=== PATIENT | male | born 1980 | race Caucasian/White ===

== ENCOUNTER 2017-08-15 20:18 | Emergency (ER) | payer OTHER ==
[~2017-08-15] VITALS: Ht 175.3 cm; Wt 99.7 kg
[2017-08-15 20:28] VITALS: Ht 175.3 cm; Wt 99.7 kg
[2017-08-15] MEDS ORDERED: HYDROCODONE/APAP (5/325) TAB PO ONE (21:30)
--- NOTE | 2017-08-15 21:50 | ERD ---
ER Documentation Chief Complaint Chief Complaint left lower toothache x 4 days, also c/o diarrhea/abd pain HPI 37-year-old male comes in with left-sided lower tooth pain that started about 4 days ago, is also had a left lower quadrant abdominal pain with diarrhea. Patient describes swelling to the gum, he tried poking it with a needle and which did not help. He has not had any difficulty swallowing, trismus, voice changes or drooling. He denies fevers or chills. He is also had on-and-off diarrhea, with left lower quadrant abdominal pain, possibly to 3 episodes each day that are nonbloody non-mucousy. ROS All systems reviewed and are negative except as per history of present illness. Medications Home Meds Active Scripts Ibuprofen* (Motrin*) 600 Mg Tab, 600 MG PO Q6, #30 TAB Prov:ADRIANA LUBIN PA-C 08/15/17 Penicillin V Potassium* (Penicillin V K*) 500 Mg Tab, 500 MG PO QID for 10 Days , TAB Prov:ADRIANA LUBIN PA-C 08/15/17 Allergies Allergies: Coded Allergies: No Known Drug Allergies (Verified Allergy, Unknown, 08/15/17) PMhx/Soc Medical and Surgical Hx: pt denies Surgical Hx Hx Miscellaneous Medical Probl: Yes (Hyperlipidemia, HTN, Prediabetic) Hx Alcohol Use: No Hx Substance Use: No Hx Tobacco Use: No Smoking Status: Never smoker Physical Exam Vitals Vital Signs Date Time Temp Pulse Resp B/P Pulse Ox O2 Delivery O2 Flow Rate FiO2 08/15/17 20:28 99.2 63 20 154/89 99 Physical Exam General: Well-developed, well-nourished. The patient appears in no acute distress. HEENT: Head is normocephalic, atraumatic. No scleral icterus. Pupils are equal , round, and reactive. Oral mucous membranes are moist. No pharyngeal erythema. Tooth #18 is decayed, there is a local abscess, without trismus, voice changes or drooling, no submandibular swelling. Neck: Supple. Nontender. Lungs: Clear to auscultation. Normal air movement. Heart: Regular rate and rhythm. S1 and S2 are normal. No murmurs, gallops, or rubs. Abdomen: Soft, tender to palpation the left lower quadrant, no rebound pain, no guarding, negative Rosado sign, no McBurney's tenderness. Nondistended. Bowel sounds are normoactive. Extremities: No clubbing or cyanosis. Normal pulses. Moving extremities x 4. No weakness. Neurologic: Alert and oriented 3. No focal deficits. Skin: Normal turgor. No rash or lesions. Result Diagram: 08/15/17214408/15/172144 Results 24 hrs Laboratory Tests Test 08/15/17 21:28 08/15/17 21:45 Urine Color YELLOW Urine Clarity CLEAR Urine pH 5.0 Urine Specific [place] 1.027 Urine Ketones NEGATIVEmg/dL Urine Nitrite NEGATIVEmg/dL Urine Bilirubin NEGATIVEmg/dL Urine Urobilinogen NEGATIVEmg/dL Urine Leukocyte Esterase NEGATIVELeu/ul Urine Microscopic RBC 3/HPF Urine Microscopic WBC 1/HPF Urine Hemoglobin NEGATIVEmg/dL Urine Glucose NEGATIVEmg/dL Urine Total Protein 1+mg/dl White Blood Count 10.110^3/ul Red Blood Count 5.2410^6/ul Hemoglobin 15.0g/dl Hematocrit 44.1% Mean Corpuscular Volume 84.2fl Mean Corpuscular Hemoglobin 28.6pg Mean Corpuscular Hemoglobin Concent 34.0g/dl Red Cell Distribution Width 13.7% Platelet Count 10704^3/UL Mean Platelet Volume 10.3fl Neutrophils % 54.9% Lymphocytes % 35.5% Monocytes % 6.1% Eosinophils % 3.0% Basophils % 0.2% Nucleated Red Blood Cells % 0.0/100WBC Neutrophils # 5.510^3/ul Lymphocytes # 3.610^3/ul Monocytes # 0.610^3/ul Eosinophils # 0.310^3/ul Basophils # 0.010^3/ul Nucleated Red Blood Cells # 0.010^3/ul Sodium Level 145mmol/L Potassium Level 4.3mmol/L Chloride Level 103mmol/L Carbon Dioxide Level 27mmol/L Anion Gap 19 Blood Urea Nitrogen 21mg/dl Creatinine 0.83mg/dl Glucose Level 95mg/dl Calcium Level 9.2mg/dl Total Bilirubin 0.2mg/dl Direct Bilirubin 0.00mg/dl Indirect Bilirubin 0.2mg/dl Aspartate Amino Transf (AST/SGOT) 48IU/L Alanine Aminotransferase (ALT/SGPT) 97IU/L Alkaline Phosphatase 72IU/L Total Protein 8.5g/dl Albumin 4.7g/dl Globulin 3.80g/dl Albumin/Globulin Ratio 1.23 Lipase 92U/L Current Medications Medications (Trade) Dose Ordered Sig/Lisa Route PRN Reason Start Time Stop Time Status Last Admin Dose Admin Acetaminophen/ Hydrocodone Bitart ([place] (5/325)) 1 tab ONCE ONCE PO 08/15/17 21:30 08/15/17 21:31 DC 08/15/17 21:34 DIAGNOSTIC IMAGING REPORT Patient: THELMA REYNOSO : 1980 Age: 37 Sex: M MR #: [id number] DOS: 08/15/172125 Ordering MD: ADRIANA LUBIN PA-C Location: [facility] Room/Bed: PROCEDURE: CT abdomen and pelvis without contrast. CLINICAL INDICATION: Left lower quadrant abdominal pain. TECHNIQUE: CT of the abdomen and pelvis was performed without contrast. Coronal and sagittal reformatted images were obtained from the axial source images. Images were reviewed on a high-resolution PACS workstation. The total exam CTDI equals 19.17 mGy and the total exam DLP equals 1203.11 mGy-cm. DICOM images are available. One or more of the following dose reduction techniques were used: - Automated exposure control. - Adjustment of the mA and/or kV according to patient size. - Use of iterative reconstruction technique. COMPARISON: None available. FINDINGS: Visualized lower thorax: The visualized lung bases are clear. The visualized heart is unremarkable. Hepatobiliary system and spleen: There is diffuse fatty infiltration of the liver with focal sparing along the gallbladder fossa. The liver is enlarged measuring 22 cm in length. There is no intra or extrahepatic biliary ductal dilatation. The gallbladder is grossly unremarkable. The spleen is grossly unremarkable. The pancreas is grossly unremarkable. Adrenal glands and genitourinary system: The adrenal glands are grossly unremarkable. There is no nephrolithiasis or hydronephrosis. The urinary bladder is grossly unremarkable. The prostate gland and seminal vesicles are grossly unremarkable. Gastrointestinal system: There is no bowel wall thickening or evidence of obstruction. The appendix is in the right lower quadrant and is unremarkable. Peritoneum, vascular, and lymphatics: There is no free intraperitoneal air or free fluid. There is no mesenteric or retroperitoneal adenopathy. There are atherosclerotic changes of the aorta, which is nonaneurysmal. Musculoskeletal system and soft tissues: There is mild multilevel degenerative enthesopathy. There are no concerning osseous lesions. There is a 10 mm sclerotic lesion within the left lateral aspect of the L3 vertebral body with a narrow zone of transition and well-defined margins, likely a bone island. The soft tissues are unremarkable. IMPRESSION: 1. Hepatomegaly and hepatic steatosis. 2. No acute abnormality or findings to suggest a source of the patient's symptoms. RPTAT: HLBP .Tex Peralta MD, Date Time Electronically viewed and signed by .Tex Peralta MD, on 08/15/2017 22:50 Procedures/MDM 37-year-old male comes in with multiple complaints, including tooth abscess and left lower quadrant abdominal pain with diarrhea, the patient has dental abscess that is small with abdominal pain without evidence of diverticulitis. Abdominal labs are normal, CT abdomen pelvis is negative for diverticulitis, or intra-abdominal abscess or bowel perforation. Given his history of diarrhea, to avoid exacerbating his symptoms, clindamycin was considered for antimicrobial coverage given the early evidence of dental abscess the patient will be treated with penicillin ibuprofen as he states that he has a dentist that he can follow-up with. There is no evidence of a deep space infection, submandibular infection, he stable for discharge. Departure Diagnosis: Primary Impression: Tooth disease Additional Impression: Diarrhea Condition: Good ADRIANA LUBIN PA-C Aug 15, 2017 21:50
[2017-08-15 22:02] LABS: BASOPHILS % 0.2 % (0.0-2.0); EOSINOPHILS # 0.3 10^3/ul (0.0-0.5); HEMATOCRIT 44.1 % (42.0-52.0); LYMPHOCYTES # 3.6 10^3/ul (0.8-2.9); LYMPHOCYTES % 35.5 % (15.0-51.0); MEAN CORPUSCULAR HEMOGLOBIN 28.6 pg (29.0-33.0); MEAN CORPUSCULAR VOLUME 84.2 fl (82.0-101.0); MEAN PLATELET VOLUME 10.3 fl (7.4-10.4); MONOCYTE # 0.6 10^3/ul (0.3-0.9); MONOCYTES % 6.1 % (0.0-11.0); NEUTROPHIL # 5.5 10^3/ul (1.6-7.5); NEUTROPHILS % 54.9 % (39.0-77.0); PLATELET COUNT 227 10^3/UL (140-415); RED BLOOD COUNT 5.24 10^6/ul (4.70-6.10); RED CELL DISTRIBUTION WIDTH 13.7 % (11.5-14.5); WHITE BLOOD COUNT 10.1 10^3/ul (4.8-10.8)
[2017-08-15 22:17] LABS: ADD UMIC YES; UR ASCORBIC ACID 40 mg/dL (NEGATIVE); UR BILIRUBIN (Dip) NEGATIVE (NEGATIVE); UR BLOOD (Dip) NEGATIVE (NEGATIVE); UR CLARITY CLEAR (CLEAR); UR COLOR YELLOW (YELLOW); UR GLUCOSE (Dip) NEGATIVE (NEGATIVE); UR KETONES (Dip) NEGATIVE (NEGATIVE); UR LEUKOCYTE ESTERASE (Dip) NEGATIVE Leu/ul (NEGATIVE); UR NITRITE (Dip) NEGATIVE (NEGATIVE); UR RBC 3 /HPF (0-5); UR SPECIFIC GRAVITY (Dip) 1.027 (1.003-1.030); UR TOTAL PROTEIN (Dip) 1+ mg/dl (NEGATIVE); UR UROBILINOGEN (Dip) NEGATIVE (NEGATIVE)
[2017-08-15 22:35] LABS: ALBUMIN 4.7 g/dl (3.3-4.9); ALBUMIN/GLOBULIN RATIO 1.23; BILIRUBIN,INDIRECT 0.2 mg/dl (0-1.1); BILIRUBIN,TOTAL 0.2 mg/dl (0.2-1.3); CALCIUM 9.2 mg/dl (8.4-10.2); CREATININE 0.83 mg/dl (0.61-1.24); POTASSIUM 4.3 mmol/L (3.5-5.1); TOTAL PROTEIN 8.5 g/dl (6.1-8.1)
--- NOTE | 2017-08-15 22:51 | RADRPT ---
PROCEDURE: CT abdomen and pelvis without contrast. CLINICAL INDICATION: Left lower quadrant abdominal pain. TECHNIQUE: CT of the abdomen and pelvis was performed without contrast. Coronal and sagittal reform atted images were obtained from the axial source images. Images were reviewed on a high-resolution [employer] workstation. The total exam CTDI equals 19.17 mGy and the total exam DLP equals 1203.11 mGy-cm. DICOM images are available. One or more of the following dose reduction techniques were used: - Automated exposure control. - Adjustment of the mA and/or kV according to patient size. - Use of iterative reconstruction technique. COMPARISON: None available. FINDINGS: Visualized lower thorax: The visualized lung bases are clear. The visualized heart is unremarkable. Hepatobiliary system and spleen: There is diffuse fatty infiltration of the liver with focal sparin g along the gallbladder fossa. The liver is enlarged measuring 22 cm in length. There is no intra or extrahepatic biliary ductal dilatation. The gallbladder is grossly unremarkable. The spleen is adriana sly unremarkable. The pancreas is grossly unremarkable. Adrenal glands and genitourinary system: The adrenal glands are grossly unremarkable. There is no n ephrolithiasis or hydronephrosis. The urinary bladder is grossly unremarkable. The prostate gland an d seminal vesicles are grossly unremarkable. Gastrointestinal system: There is no bowel wall thickening or evidence of obstruction. The appendix is in the right lower quadrant and is unremarkable. Peritoneum, vascular, and lymphatics: There is no free intraperitoneal air or free fluid. There is no mesenteric or retroperitoneal adenopathy. There are atherosclerotic changes of the aorta, which i s nonaneurysmal. Musculoskeletal system and soft tissues: There is mild multilevel degenerative enthesopathy. There are no concerning osseous lesions. There is a 10 mm sclerotic lesion within the left lateral aspect of the L3 vertebral body with a narrow zone of transition and well-defined margins, likely a bone is land. The soft tissues are unremarkable. IMPRESSION: 1. Hepatomegaly and hepatic steatosis. 2. No acute abnormality or findings to suggest a source of the patient's symptoms. RPTAT: HLBP .Tex Peralta MD, MD Date Time Electronically viewed and signed by .Tex Peralta MD, MD on 08/15/2017 22:50 .P/
[2017-08-15] MEDS ORDERED: PENI500T PO (23:01)
[2017-08-15] MEDS ORDERED: IBUP-1542 PO (23:01)
== END 2017-08-15 23:15 | disposition home or self-care (01) ==
LOC: FTE 20:18
DX: K08.89 Other specified disorders of teeth and supporting structures (principal); R19.7 Diarrhea, unspecified
CPT/HCPCS: 74176; 80053; 81001; 83690; 85025; Z7610; 36415